=== PATIENT | male | born 1960 | race Caucasian/White ===

== ENCOUNTER 2017-05-07 22:18 | Emergency (ER) | payer MEDICAID ==
[2017-05-07 23:03] LABS: ADD MAN DIFF? NO
[2017-05-07 23:06] LABS: BASO # 0.1 x10^3/uL (0.0-0.2); BASO % 1 % (0-3); EOS % 2 % (0-3); HEMATOCRIT 48.8 % (39.0-53.0); HEMOGLOBIN 16.4 g/dL (13.0-17.5); LYMPH # 3.4 x10^3/uL (1.0-4.8); LYMPH % 40 % (24-48); MEAN CORPUSCULAR HEMOGLOBIN 28 pg (25-35); MEAN CORPUSCULAR HGB CONC 34 g/dL (31-37); MEAN CORPUSCULAR VOLUME 83 fL (79-100); MONO % 10 % (0-9); NEUT % 48 % (31-73); PLATELET COUNT 301 x10^3/uL (140-400); RED BLOOD COUNT 5.85 x10^6/uL (4.30-5.70); RED CELL DISTRIBUTION WIDTH 14.7 % (11.5-14.5); WHITE BLOOD COUNT 8.6 x10^3/uL (4.0-11.0)
[2017-05-07 23:25] LABS: ANION GAP 12 (6-14); BLOOD UREA NITROGEN 6 mg/dL (8-26); CALCIUM 9.3 mg/dL (8.5-10.1); CARBON DIOXIDE 26 mmol/L (21-32); CHLORIDE 101 mmol/L (98-107); CREATININE 1.5 mg/dL (0.7-1.3); GFR 48.8; GLUCOSE 130 mg/dL (70-99); POTASSIUM 3.4 mmol/L (3.5-5.1); SODIUM 139 mmol/L (136-145)
[2017-05-07] MEDS ORDERED: IBUPROFEN 600 MG TABLET. PO (23:40)
[2017-05-07] MEDS: cloNIDine HCL 0.1 MG TABLET PO (23:40)
[2017-05-07] MEDS: IBUPROFEN 600 MG TABLET. PO (23:41)
[2017-05-07 23:56] LABS: TROPONINI < 0.017 ng/mL (0.000-0.055)
[2017-05-08] MEDS: HYDROcodone/APAP 5/325MG 1 TAB TABLET PO (00:30)
== END 2017-05-08 00:36 | disposition home or self-care (01) ==
LOC: ER 05-08 00:36
DX: G89.29 Other chronic pain (principal); I10 Essential (primary) hypertension; M54.2 Cervicalgia; M54.9 Dorsalgia, unspecified; F10.20 Alcohol dependence, uncomplicated; Z76.5 Malingerer [conscious simulation]; Z91.19 Patient's noncompliance with other medical treatment and regimen
CPT/HCPCS: 36415; 71010; 80048; 84484; 85025; 93005; 99285-25